=== PATIENT | female | born 1995 | race Caucasian/White ===

== ENCOUNTER 2019-07-07 22:53 | Outpatient (CLI) | payer OTHER ==
[~2019-07-07] VITALS: Ht 167.6 cm; Wt 78.2 kg
[2019-07-07] MEDS ORDERED: PREN-59 PO (23:48)
== END 2019-07-07 23:55 | disposition home or self-care (01) ==
LOC: LDOP 22:53
PROVIDERS: ATTEND Obstetrics & Gynecology
DX: O42.913 Preterm premature rupture of membranes, unspecified as to length of time between rupture and onset of labor, third trimester (principal); Z3A.36 36 weeks gestation of pregnancy
CPT/HCPCS: 59025; 89060; 99211; G0463; Q0114

== ENCOUNTER 2019-08-01 14:15 | Inpatient (IN) | payer OTHER ==
[~2019-08-01] VITALS: Ht 167.6 cm; Wt 79.5 kg
[~2019-08-01 14:15] MED LIST: PREN-59 PO
[2019-08-07] MEDS ORDERED: OXYTOCIN 30U/ 0.9% NaCL 500ML 500 ML IV ONE (21:28)
[2019-08-07] MEDS ORDERED: D5%-LACTATED RINGERS 1,000 ML IV SCH (21:28)
[2019-08-07] MEDS ORDERED: OXYTOCIN 30U/ 0.9% NaCL 500ML 500 ML IV PRN (21:28)
[2019-08-07] MEDS ORDERED: TERBUTALINE 1 MG/ML, 1ML IVPush PRN (21:30)
[2019-08-07] MEDS ORDERED: SODIUM CITRATE/CITRIC ACID 30 ML UDC PO PRN (21:30)
[2019-08-07] MEDS ORDERED: ONDANSETRON 2MG/ML, 2ML IVPush PRN (21:30)
[2019-08-07] MEDS ORDERED: FENTANYL PF 100 MCG/2ML IV PRN (21:30)
[2019-08-07] MEDS ORDERED: FENTANYL PF 100 MCG/2ML IVPush PRN (21:30)
[2019-08-07] MEDS ORDERED: METOCLOPRAMIDE 5 MG/ML, 2ML IVPush PRN (21:30)
[2019-08-07] MEDS ORDERED: TERBUTALINE 1 MG/ML, 1ML SQ PRN (21:30)
[2019-08-07] MEDS: LACTATED RINGERS 1,000 ML IV SCH (21:30)
[2019-08-07] MEDS ORDERED: CALCIUM CARBONATE 500 MG TAB.CHEW PO PRN (21:30)
[2019-08-07] MEDS ORDERED: LIDOCAINE 1%, 20ML ONE (21:39)
[2019-08-07] MEDS ORDERED: MISOPROSTOL 25 MCG TABLET ONE ×2 (21:39→21:40)
[2019-08-07] MEDS ORDERED: MISOPROSTOL 200 MCG TABLET ONE (21:40)
[2019-08-07] MEDS ORDERED: OXYTOCIN 30U/ 0.9% NaCL 500ML 500 ML ONE (21:40)
[2019-08-07] MEDS ORDERED: NEWBORN KIT ONE (21:42)
[2019-08-07] MEDS: MISOPROSTOL 25 MCG TABLET VG PRN (21:50)
[2019-08-07 21:53] LABS: BASOPHILS # (AUTO) 0.08 x10^3/uL (0-0.1); BASOPHILS % (AUTO) 1 % (0-1); EOSINOPHILS # (AUTO) 0.15 x10^3/uL (0-0.4); EOSINOPHILS % (AUTO) 1 % (1-7); LYMPHOCYTES # (AUTO) 2.72 x10^3/uL (1-3.4); LYMPHOCYTES % (AUTO) 22 % (22-44); MD NO; MEAN CORPUSCULAR HEMOGLOBIN 32.2 pg (27.0-34.8); MEAN CORPUSCULAR VOLUME 94.7 fL (80-100); MEAN PLATELET VOLUME 7.2 fL (7.4-10.4); MONOCYTES # (AUTO) 0.98 x10^3/uL (0.2-0.8); MONOCYTES % (AUTO) 8 % (2-9); NEUTROPHILS % (AUTO) 69 % (42-75); PLATELET COUNT 259 x10^3/uL (130-400); RED BLOOD COUNT 3.39 x10^6/uL (3.82-5.3); RED CELL DISTRIBUTION WIDTH 13.7 % (9.6-15.2)
[2019-08-07] MEDS ORDERED: FENTANYL/BUPIV./NS/PF 250 ML EPIDCONT SCH (22:17)
[2019-08-07] MEDS ORDERED: LACTATED RINGERS 1,000 ML IVBOLUS PRN (22:30)
[2019-08-07] MEDS ORDERED: EPHEDRINE 50 MG/ML, 1ML IVPush PRN (22:30)
[2019-08-08] MEDS ORDERED: MISOPROSTOL 25 MCG TABLET ONE (01:42)
[2019-08-08] MEDS: MISOPROSTOL 25 MCG TABLET VG PRN (01:50)
[2019-08-08] MEDS ORDERED: FENTANYL PF 100 MCG/2ML ONE (06:38)
[2019-08-08] MEDS: LACTATED RINGERS 1,000 ML IV SCH ×3 (07:46→23:31)
[2019-08-08] MEDS ORDERED: BUPIVACAINE 0.25% ONE (08:52)
[2019-08-08] MEDS ORDERED: LACTATED RINGERS 1,000 ML IV SCH (09:15)
[2019-08-08] MEDS ORDERED: FENTANYL/BUPIV./NS/PF 250 ML EPIDCONT SCH (09:15)
[2019-08-08] MEDS ORDERED: LACTATED RINGERS 1,000 ML IVBOLUS PRN (09:30)
[2019-08-08] MEDS ORDERED: EPHEDRINE 50 MG/ML, 1ML IVPush PRN (09:30)
[2019-08-09 05:20] VITALS: BP 97/61
[2019-08-09] MEDS ORDERED: FENTANYL/BUPIV./NS/PF 250 ML EPIDCONT ONE (08:24)
[2019-08-09] MEDS ORDERED: FENTANYL PF 500 MCG, BUPIVACAINE/PF 0.5%, 30ML 62.5 ML in SODIUM CHLORIDE 0.9% 177.5 ML EPIDCONT SCH (08:30)
[2019-08-09] MEDS ORDERED: ACETAMINOPHEN 500 MG TABLET ONE (10:48)
[2019-08-09] MEDS ORDERED: ACETAMINOPHEN 500 MG TABLET PO ONE (11:00)
[2019-08-09] MEDS ORDERED: TERBUTALINE 1 MG/ML, 1ML ONE (12:49)
[2019-08-09] MEDS ORDERED: FENTANYL PF 100 MCG/2ML ONE (12:50)
[2019-08-09] MEDS ORDERED: LIDOCAINE-MPF 2% ,5ML ONE (12:52)
[2019-08-09] MEDS ORDERED: NITROGLYCERIN 5 MG/ML, 10ML ONE (13:00)
[2019-08-09] MEDS ORDERED: METOCLOPRAMIDE 5 MG/ML, 2ML ONE (13:01)
[2019-08-09] MEDS ORDERED: SODIUM CITRATE/CITRIC ACID 30 ML UDC ONE (13:01)
[2019-08-09] MEDS ORDERED: EPHEDRINE 50 MG/ML, 1ML ONE (13:22)
[2019-08-09] MEDS ORDERED: CEFAZOLIN 1,000 MG ONE (13:22)
[2019-08-09] MEDS ORDERED: PHENYLEPHRINE 10 MG/ML ONE (13:22)
[2019-08-09] MEDS: LACTATED RINGERS 1,000 ML IV SCH ×4 (13:49→23:49)
[2019-08-09] MEDS: OXYTOCIN 30U/ 0.9% NaCL 500ML 500 ML IV SCH ×2 (13:49→23:49)
[2019-08-09] MEDS ORDERED: MISOPROSTOL 200 MCG TABLET PR PRN (14:00)
[2019-08-09] MEDS ORDERED: MORPHINE SULFATE 4 MG/ML, 1ML IVPush PRN (14:00)
[2019-08-09] MEDS ORDERED: ONDANSETRON 2MG/ML, 2ML IV PRN (14:00)
[2019-08-09] MEDS ORDERED: IBUPROFEN 600 MG TABLET PO PRN (14:00)
[2019-08-09] MEDS ORDERED: ACETAMINOPHEN 325 MG TABLET PO PRN (14:00)
[2019-08-09] MEDS ORDERED: SIMETHICONE 80 MG CHEW TAB PO PRN (14:00)
[2019-08-09] MEDS ORDERED: morphine SULFATE 10 MG/ML, 1ML IVPush PRN (14:00)
[2019-08-09] MEDS ORDERED: OXYcodone IR 5MG TABLET PO PRN (14:00)
[2019-08-09] MEDS ORDERED: OXYcodone 5 MG/5 ML ORAL.SOL UDC ONE (15:01)
[2019-08-09] MEDS ORDERED: OXYcodone 5 MG/5 ML ORAL.SOL UDC PO ONE (15:30)
[2019-08-09 16:16] LABS: MD YES; MEAN CORPUSCULAR HEMOGLOBIN 32.4 pg (27.0-34.8); MEAN CORPUSCULAR HGB CONC 33.7 g/dL (32.4-35.8); MEAN PLATELET VOLUME 7.2 fL (7.4-10.4); PLATELET COUNT 217 x10^3/uL (130-400); RED BLOOD COUNT 3.03 x10^6/uL (3.82-5.3); RED CELL DISTRIBUTION WIDTH 13.9 % (9.6-15.2)
[2019-08-09 16:20] VITALS: BP 103/68
[2019-08-09 16:40] LABS: BAND#(MANUAL) 2.25 x10^3/uL; BANDS%(MANUAL) 7 % (0-7); LYMPH#(MANUAL) 1.61 x10^3/uL (1-3.4); LYMPHS% (MANUAL) 5 % (22-44); MONOS#(MANUAL) 2.58 x10^3/uL (0.3-2.7); MONOS% (MANUAL) 8 % (2-9); SEG#(MANUAL) 25.76 x10^3/uL (1.8-6.8); SEGS% (MANUAL) 80 % (42-75)
[2019-08-09 16:41] LABS: <PLATELET ESTIMATE> ADEQUATE; <RBC MORPHOLOGY> NORMAL; SMALL PLATELETS 1+
[2019-08-09 20:45] VITALS: BP 102/63
[2019-08-09] MEDS: DOCUSATE 100 MG CAPSULE PO PRN (20:55)
[2019-08-09] MEDS: KETOROLAC 30 MG/1 ML IV SCH (20:55)
[2019-08-10 01:30] VITALS: BP 100/65
[2019-08-10] MEDS: KETOROLAC 30 MG/1 ML IV SCH ×3 (03:46→20:19)
[2019-08-10 03:50] VITALS: BP 100/62
[2019-08-10] MEDS: LACTATED RINGERS 1,000 ML IV SCH ×5 (05:49→21:49)
[2019-08-10 07:27] VITALS: BP 98/61
[2019-08-10] MEDS: OXYcodone/APAP 5/325MG TABLET PO PRN ×2 (07:56→15:38)
[2019-08-10] MEDS: PRENATAL VIT/IRON/FA 1 EACH TABLET PO SCH (09:00)
[2019-08-10] MEDS: OXYTOCIN 30U/ 0.9% NaCL 500ML 500 ML IV SCH ×2 (09:49→19:49)
[2019-08-10 19:15] VITALS: BP 111/70
[2019-08-10 20:10] VITALS: BP 113/71
[2019-08-10] MEDS: DOCUSATE 100 MG CAPSULE PO PRN (20:19)
[2019-08-10 23:59] LABS: MEAN CORPUSCULAR HEMOGLOBIN 32.7 pg (27.0-34.8); MEAN CORPUSCULAR HGB CONC 34.2 g/dL (32.4-35.8); MEAN CORPUSCULAR VOLUME 95.6 fL (80-100); MEAN PLATELET VOLUME 7.2 fL (7.4-10.4); PLATELET COUNT 269 x10^3/uL (130-400); RED BLOOD COUNT 2.89 x10^6/uL (3.82-5.3); RED CELL DISTRIBUTION WIDTH 14.1 % (9.6-15.2)
[2019-08-11 00:24] LABS: BASOPHILS # (AUTO) 0.21 x10^3/uL (0-0.1); BASOPHILS % (AUTO) 1 % (0-1); EOSINOPHILS % (AUTO) 1 % (1-7); LYMPHOCYTES % (AUTO) 12 % (22-44); MD SCAN; MONOCYTES % (AUTO) 5 % (2-9); NEUTROPHILS # (AUTO) 20.49 x10^3/uL (1.8-6.8); NEUTROPHILS % (AUTO) 82 % (42-75)
[2019-08-11] MEDS: KETOROLAC 30 MG/1 ML IV SCH ×2 (02:02→08:05)
[2019-08-11] MEDS: LACTATED RINGERS 1,000 ML IV SCH ×2 (05:49)
[2019-08-11] MEDS: OXYTOCIN 30U/ 0.9% NaCL 500ML 500 ML IV SCH (05:49)
[2019-08-11 07:40] VITALS: BP 100/65
[2019-08-11] MEDS: PRENATAL VIT/IRON/FA 1 EACH TABLET PO SCH (09:00)
[2019-08-11] MEDS ORDERED: OXYC-302 PO (10:34)
[2019-08-11] MEDS ORDERED: IBUP-1222 PO (10:35)
[2019-08-11] MEDS ORDERED: DOCU-131 PO (10:36)
[2019-08-11] MEDS ORDERED: FERR324T5 PO (10:37)
[2019-08-11] MEDS: OXYcodone/APAP 5/325MG TABLET PO PRN (11:41)
[2019-08-11] MEDS ORDERED: IBUPROFEN 600 MG TABLET PO PRN (14:00)
== END 2019-08-11 12:00 | disposition home or self-care (01) | DRG 806 ==
LOC: LDIP 08-07 21:10 → 2NW 08-09 16:00
PROVIDERS: ADMIT Obstetrics & Gynecology; ATTEND Obstetrics & Gynecology
PROC: 10E0XZZ Delivery of Products of Conception, External Approach (ICD-10-PCS; principal; 2019-08-09)
PROC: 30233N1 Transfusion of Nonautologous Red Blood Cells into Peripheral Vein, Percutaneous Approach (ICD-10-PCS; 2019-08-09)
PROC: 3E0R3BZ Introduction of Anesthetic Agent into Spinal Canal, Percutaneous Approach (ICD-10-PCS; 2019-08-09)
PROC: 00HU33Z Insertion of Infusion Device into Spinal Canal, Percutaneous Approach (ICD-10-PCS; 2019-08-09)
PROC: 0W8NXZZ Division of Female Perineum, External Approach (ICD-10-PCS; 2019-08-09)
PROC: 0US9XZZ Reposition Uterus, External Approach (ICD-10-PCS; 2019-08-09)
PROC: 10H07YZ Insertion of Other Device into Products of Conception, Via Natural or Artificial Opening (ICD-10-PCS; 2019-08-09)
DX: O48.0 Post-term pregnancy (principal); D62 Acute posthemorrhagic anemia; Z37.0 Single live birth; O42.92 Full-term premature rupture of membranes, unspecified as to length of time between rupture and onset of labor; O90.81 Anemia of the puerperium; Z3A.40 40 weeks gestation of pregnancy
CPT/HCPCS: 36415; J7121; 82962; 85025; 86592; 86850; 86900; 86923; G0378; J0690; J1885; J3010; J2370; J2590; J3105; J7120; P9016

== ENCOUNTER 2019-08-05 23:00 | Outpatient (CLI) | payer OTHER ==
[2019-08-05 23:20] VITALS: BP 113/61
== END 2019-08-05 23:52 | disposition home or self-care (01) ==
LOC: LDOP 23:00
PROVIDERS: ATTEND Obstetrics & Gynecology
DX: O26.893 Other specified pregnancy related conditions, third trimester (principal); R10.9 Unspecified abdominal pain; Z3A.40 40 weeks gestation of pregnancy
CPT/HCPCS: 59025; 99211; G0463